=== PATIENT | male | born 1995 | race African-American/Black ===

== ENCOUNTER 2016-09-29 22:50 | Emergency (ER) | payer SELFPAY ==
[~2016-09-29 22:50] MED LIST: NAPROSYN500 MG PO
== END 2016-09-29 23:59 | disposition home or self-care (01) ==
LOC: SED 22:50
DX: L03.314 Cellulitis of groin (principal)
CPT/HCPCS: 99282

== ENCOUNTER 2016-11-09 17:20 | Emergency (ER) | payer BC ==
--- NOTE | ~2016-11-09 | CR2 ---
[facility]. [facility] A Service of [facility] RADIOLOGY TEXT RESULTS PATIENT: CODI KELSEY LOCATION: SED : [birth year] UNIT #: [id number] AGE: [address]: Makayla Lovell SEX: M ORDER DR: [id number] [address] [address] [id number] MR#: [id number] Acc #: [id number] NAME: CODI KELSEY : 1995 SEX: M STUDY DATE/TIME: 11/09/2016 18:38 UNIT: SED ROOM: STUDY DESCRIPTION: CR Abdomen Acute Series Attending Physician: Makayla Lovell Pa-C Ordering Physician: Makayla Lovell Pa-C MEDICAL IMAGING REPORT This report is preliminary unless electronic signature is present. EXAM Acute abdomen series HISTORY Abdomen pain. Constipation for 2 days. FINDINGS Flat and upright views of the abdomen and upright view of the chest demonstrate the bowel gas pattern is normal. No bowel dilatation or displacement. No abnormal calcifications are identified. Upright view of the chest demonstrates the cardiac size and pulmonary vascularity are normal. Minimal left lower thoracic curve. IMPRESSION No acute findings. The bowel gas pattern is normal. No active disease in the lungs. Dictated by... Mc Vera M.D. THIS IS AN ELECTRONICALLY VERIFIED REPORT Mc Vera M.D. at 11/09/2016 11:30 PM DFL/pcl TD: 11/09/2016 21:54 JOB #: [id number] MEDICAL IMAGING REPORT Page 1 of 1
[2016-11-09] MEDS ORDERED: NO MEDICATIONS (17:22)
== END 2016-11-09 20:04 | disposition home or self-care (01) ==
LOC: SED 17:20
DX: L02.214 Cutaneous abscess of groin (principal); J02.9 Acute pharyngitis, unspecified; F32.9 Major depressive disorder, single episode, unspecified; G40.909 Epilepsy, unspecified, not intractable, without status epilepticus; F17.200 Nicotine dependence, unspecified, uncomplicated
CPT/HCPCS: 36415; 74022; 87651; 96360; 99284